=== PATIENT | female | born 1935 | race Caucasian/White ===

== ENCOUNTER 2019-07-02 17:14 | Emergency (ER) | payer OTHER ==
[2019-07-02] MEDS: ACETAMINOPHEN 325 MG TAB PO (20:37)
[2019-07-02 20:41] LABS: URINE PH (Dip) POC 5.5 (5.0-8.5)
[2019-07-02 20:41] LABS: URINE BLOOD (Dip) POC Negative (NEGATIVE); URINE GLUCOSE (Dip) POC Negative (NEGATIVE); URINE KETONES (Dip) POC Negative (NEGATIVE); URINE LEUKOCYTE EST (Dip) POC 1+ (NEGATIVE); URINE NITRITE (Dip) POC Negative (NEGATIVE); URINE TOTAL PROTEIN POC Negative (NEGATIVE)
== END 2019-07-02 22:15 | disposition home or self-care (01) ==
LOC: E/R 17:14
DX: R42 Dizziness and giddiness (principal); I10 Essential (primary) hypertension; E11.9 Type 2 diabetes mellitus without complications
CPT/HCPCS: 70450; 72125; 73090; 73090-RT; 81003; 99284-25